=== PATIENT | male | born 1970 | race Two or more races ===

== ENCOUNTER 2017-11-29 11:04 | Emergency (ER) | payer SELFPAY ==
[2017-11-29] MEDS ORDERED: CHLORDIAZEPOXIDE 25MG PREPK#6 BTL TAKEHOME ONE (11:42)
[2017-11-29] MEDS ORDERED: chlordiazePOXIDE 25 MG CAP PO ONE (11:42)
--- NOTE | 2017-11-29 11:42 | EDPHY ---
General Time Seen by Provider: 11/29/17 11:21 Narrative: CHIEF COMPLAINT: The alcohol detox, wants to go to the [facility] HISTORY OF PRESENT ILLNESS: Patient presents with this friend at bedside with reports of alcohol abuse and is requesting [facility]. He says that he typically ingest nearly 30 beers per day. He says he had 4 beers this morning. He is wanting to detox with supervision, thus he would like to go to the [facility]. He has had a history of seizure from alcohol withdrawal remotely. He has presented to the [facility] in the past and was told to come here 1st, thus he has presented here 1st. He has no complaints of headache or chest pain. His friend at bedside says he has not witnessed any seizure activity. He is requesting Librium taper protocol. No other associated complaints or modifying factors. REVIEW OF SYSTEMS: Ten systems reviewed and are negative unless otherwise noted in the HPI PCP: None currently SPECIALISTS: None PAST MEDICAL HISTORY: Alcohol abuse PAST SURGICAL HISTORY: No recent surgeries SOCIAL HISTORY: Nonsmoker. Daily alcohol use of 30 beers per day. Denies drug use. Works here locally as a maintenance machinist FAMILY HISTORY: Noncontributory EXAMINATION General Appearance: Alert, no distress. Well-developed and well-nourished. Head: normocephalic, atraumatic Eyes: Pupils equal and round, no conjunctival pallor or injection ENT, Mouth: Mucous membranes moist. Airway patent Neck: Normal inspection, supple, non-tender Respiratory: Lungs are clear to auscultation Cardiovascular: Regular rate and rhythm Gastrointestinal: Abdomen is soft and nontender. No distention. No tympany Back: non-tender, no bony abnormalities Neurological: GCS 15. A&O, nonfocal, normal gait. No tremor. Normal mentation. Skin: Warm and dry, no rash no petechiae or purpura Extremities: Nontender, no pedal edema Psychiatric: Mood and affect normal DIFFERENTIAL DIAGNOSES: Including but not limited to acute alcohol intoxication, alcohol abuse, alcohol dependency, call withdrawal MDM: 11:35 a.m. Acute alcohol intoxication with abuse and asking for detox. No evidence of delirium tremens or encephalopathy. He is in no acute distress. His neuro exam is normal with no signs of seizure or tremor. I do feel he is a good candidate for supervised detoxification. He will be provided a prepack of Librium per protocol. His friend at bedside will take him there directly. We discussed that he cannot combine alcohol with a Librium. We discussed ED precautions, and I do feel he is stable for discharge home at this time. SUPERVISION: This patient was independently evaluated without direct involvement of or examination by the attending physician. - History Smoking Status: Never smoked - Objective Vital Signs: Initial Vital Signs Temperature (C) 98.8 F 11/29/17 11:09 Heart Rate 88 11/29/17 11:09 Respiratory Rate 16 11/29/17 11:09 Blood Pressure 152/96 H 11/29/17 11:09 O2 Sat (%) 96 11/29/17 11:09 O2 Delivery Mode Room Air Allergies/Adverse Reactions: No Known Allergies Allergy (Unverified 11/29/17 11:09) Home Medications: Medication Instructions Recorded NK [No Known Home Meds] 11/29/17 Medications Given: Discontinued Medications Chlordiazepoxide (Librium 25 Mg Prepack#6) 1 btl TAKEHOME EDNOW ONE Stop: 11/29/17 11:43 Last Admin: 11/29/17 12:06 Dose: 1 btl Chlordiazepoxide HCl (Librium) 50 mg PO EDNOW ONE Stop: 11/29/17 11:43 Last Admin: 11/29/17 12:06 Dose: 50 mg Departure - Departure Disposition: Home, Routine, Self-Care Clinical Impression: Alcohol intoxication Qualifiers: Complication of substance-induced condition: uncomplicated Qualified Code(s): F10.920 - Alcohol use, unspecified with intoxication, uncomplicated Condition: Good Instructions: Chlordiazepoxide (By mouth), Alcohol Intoxication (ED), Abuse of Alcohol (ED) Additional Instructions: 1. Proceed directly to the [facility] for detox 2. Do not combine Librium and alcohol at any time 3. Contact [facility] to establish as a new patient Referrals: [facility] [Outside] - As per Instructions [facility],. [Clinic] - As per Instructions
[2017-11-29 12:11] VITALS: BP 144/79
== END 2017-11-29 12:11 | disposition home or self-care (01) ==
DX: F10.920 Alcohol use, unspecified with intoxication, uncomplicated (principal)

== ENCOUNTER 2017-11-29 22:32 | Emergency (ER) | payer SELFPAY ==
[2017-11-29] MEDS ORDERED: LORazepam 2 MG/ML INJ IVP ONE (22:35)
[2017-11-29] MEDS ORDERED: chlordiazePOXIDE 25 MG CAP PO ONE (22:35)
--- NOTE | 2017-11-29 22:38 | EDPHY ---
H & P Source: Patient, RN/MD Exam Limitations: No limitations - Medical/Surgical History Hx Asthma: No Hx Chronic Respiratory Disease: No Hx Diabetes: No Hx Cardiac Disease: No Hx Renal Disease: No Hx Cirrhosis: No Hx Alcoholism: Yes Hx HIV/AIDS: No Hx Splenectomy or Spleen Trauma: No Other PMH: Alcoholism, testicular cancer, withdrawl sz - Social History Smoking Status: Never smoked Time Seen by Provider: 11/29/17 22:37 HPI/ROS: HPI: This is a 47-year-old male who presents with Chief Complaint: Alcohol withdrawal symptoms Location: body Quality: Alcohol withdrawal Duration: Today Signs and Symptoms: no fever, + nausea, no vomiting, no hematemesis, no blood in stool, no abdominal bloating, no diarrhea, no back pain, no urinary symptoms , no testicular/groin pain, no indigestion, no chest pain, no shortness of breath Timing: Acute on chronic Severity: Moderate to severe Context: Patient presents from the [facility] with complaints of alcohol withdrawal. He reports that his last drink was around 0100. Breathalyzer was negative at 1700. He reports that he received 2 doses of Librium at the [facility] since discharge from the emergency room this morning. He reports that he has been admitted to the ICU in the past for alcohol withdrawal seizures. He complains of tremors, tactile disturbances, nausea, dry heaving, disorientation. Denies any suicidal ideation/homicidal ideation/hallucinations. States that he normally drinks 30- 36 beers every evening. Modifying Factors: Librium with mild relief Comment: ROS: see HPI Constitutional: No fever, no chills, no weight loss Eyes: No blurred vision Respiratory: No shortness of breath, no cough Cardiovascular: No chest pain, no palpitations Gastrointestinal: No nausea, no vomiting, no diarrhea, no hematemesis, no blood in stool Genitourinary: No dysuria, no blood in urine Extremities: No myalgias, no edema Neurologic: No weakness, no numbness Skin: No rashes, no petechiae Hematologic: No bruising, no bleeding MEDICAL/SURGICAL/SOCIAL HISTORY: Medical history: Alcoholism, testicular cancer, withdrawal seizures Surgical history: Denies Social history: Originally from [facility]. Family history noncontributory. CONSTITUTIONAL: Calm and pleasant male, awake and alert, no obvious distress HEENT: Atraumatic and normocephalic, PERRL, EOMI. Nares patent; no rhinorrhea; no nasal mucosal edema. Tympanic membranes clear. Oropharynx clear, no exudate and moist pink mucosa. Airway patent. No lymphadenopathy. No meningismus. Cardiovascular: Normal S1/S2, regular rate, regular rhythm, without murmur rub or gallop. PULMONARY/CHEST: Symmetrical and nontender. Clear to auscultation bilaterally. Good air movement. No accessory muscle usage. ABDOMEN: Soft, nondistended, nontender, no rebound, no guarding, no peritoneal signs, no masses or organomegaly. No CVAT. EXTREMITIES: 2/2 pulses, strength 5/5, no deformities, no clubbing, no cyanosis or edema. NEUROLOGICAL: no focal neuro deficits. GCS 15. SKIN: Warm and dry, no erythema. no rash. Good capillary refill. (Dayna Caballero) Constitutional: Initial Vital Signs Temperature (C) 36.7 C 11/29/17 22:40 Heart Rate 95 11/29/17 22:40 Respiratory Rate 18 11/29/17 22:40 Blood Pressure 126/113 H 11/29/17 22:40 O2 Sat (%) 98 11/29/17 22:40 O2 Delivery Mode Room Air Allergies/Adverse Reactions: No Known Allergies Allergy (Unverified 11/29/17 22:39) Home Medications: Medication Instructions Recorded NK [No Known Home Meds] 11/29/17 Medical Decision Making ED Course/Re-evaluation: Upon arrival CIWA was 19. Given Librium 75 mg, IV Ativan 2 mg, 2 L normal saline. Reassessed patient 1 hr later; CIWA down to 6. Watching TV and calm. No signs of delirium/seizure activity Does not meet M1 hold/ Detainer criteria. 0015: End of shift. Signed over to Dr. Santoro. Recommend 2 L normal saline IV hydration and continued monitoring overnight due to high risk of delirium tremens. In the a.m., discharge back to the [facility]. This patient was seen under the supervision of my secondary supervising physician. I evaluated care for this patient independently. Discussed this patient with Dr. Santoro who did not see the patient. (Dayna Caballero) Differential Diagnosis: Differential diagnosis includes but is not limited to alcohol withdrawal, alcohol withdrawal with delirium, alcohol withdrawal seizures. (Dayan Caballero) Other Provider: 0575 care assumed by me from JATIN Caballero pending further management of the patient' s alcohol withdrawal. 0500 patient is improved. He is no longer tremulous. He is resting comfortably. Will discharge to the [facility] with Librium. (Tima Santoro) - Data Points Medications Given: Lorazepam (Ativan Injection) 0 mg IVP Q1H PRN; Protocol PRN Reason: Alcohol Withdrawal w/IV access Stop: 11/30/17 11:02 Last Admin: 11/30/17 01:00 Dose: 2 mg Discontinued Medications Chlordiazepoxide HCl (Librium) 75 mg PO EDNOW ONE Stop: 11/29/17 22:36 Last Admin: 11/29/17 22:43 Dose: 75 mg Sodium Chloride (Ns) 1,000 mls @ 0 mls/hr IV EDNOW ONE; Wide Open PRN Reason: Protocol Stop: 11/29/17 23:02 Last Admin: 11/29/17 23:07 Dose: 1,000 mls Sodium Chloride (Ns) 1,000 mls @ 0 mls/hr IV EDNOW ONE; Wide Open PRN Reason: Protocol Stop: 11/29/17 23:02 Last Admin: 11/29/17 23:07 Dose: 1,000 mls Lorazepam (Ativan Injection) 2 mg IVP EDNOW ONE Stop: 11/29/17 22:36 Last Admin: 11/29/17 22:43 Dose: 2 mg Departure - Departure Clinical Impression: Alcohol abuse Alcohol withdrawal Qualifiers: Complication of substance-induced condition: uncomplicated Qualified Code(s): F10.230 - Alcohol dependence with withdrawal, uncomplicated Condition: Good Instructions: Abuse of Alcohol (ED), Alcohol Withdrawal (ED) Referrals: [facility] [Outside] - As per Instructions [facility],. [Clinic] - As per Instructions
[2017-11-29] MEDS ORDERED: LORazepam 2 MG/ML INJ IVP PRN (23:01)
[2017-11-29] MEDS ORDERED: NS 1,000 ML IV ONE ×2 (23:01)
[2017-11-29] MEDS ORDERED: LORazepam 1 MG TAB PO PRN (23:01)
[2017-11-30] MEDS ORDERED: CHLORDIAZEPOXIDE 25MG PREPK#6 BTL TAKEHOME ONE (04:35)
[2017-11-30] MEDS ORDERED: chlordiazePOXIDE 25 MG CAP ONE (04:50)
[2017-11-30] MEDS ORDERED: chlordiazePOXIDE 25 MG CAP PO ONE (04:53)
[2017-11-30 05:03] VITALS: BP 110/56
== END 2017-11-30 05:15 | disposition home or self-care (01) ==
LOC: EDUNIT#
DX: F10.230 Alcohol dependence with withdrawal, uncomplicated (principal); E86.9 Volume depletion, unspecified; Z85.47 Personal history of malignant neoplasm of testis
CPT/HCPCS: 96374; J2060

== ENCOUNTER 2018-01-24 14:16 | Emergency (ER) | payer SELFPAY ==
[2018-01-24] MEDS ORDERED: LORazepam 1 MG TAB PO PRN (14:34)
--- NOTE | 2018-01-24 14:44 | EDPHY ---
General - History Smoking Status: Never smoked Time Seen by Provider: 01/24/18 14:34 Narrative: CHIEF COMPLAINT: Alcohol withdrawal, suicidal HISTORY OF PRESENT ILLNESS: Patient presents with complaints of alcohol withdrawal and suicidal ideation. He admits to drinking 20/30 beers per day, but stopped this morning. He feels shaky. He has also felt suicidal since yesterday. He had a plan of driving himself off a macie into a [place]. He expresses intent to do so. He says he wants to quit drinking but he cannot do so. He has no headache or chest pain. He does not endorse any use of illicit substances. Denies previous suicide attempt does have history of suicidal ideation. No other associated complaints or modifying factors. REVIEW OF SYSTEMS: Ten systems reviewed and are negative unless otherwise noted in the HPI PCP: None SPECIALISTS: None PAST MEDICAL HISTORY: Alcohol abuse, testicular cancer PAST SURGICAL HISTORY: No recent surgeries SOCIAL HISTORY: Admits to tobacco and heavy alcohol use with 20-30 beers per day. Last intake of alcohol was this morning followed by 1 beer just prior to arrival FAMILY HISTORY: Noncontributory EXAMINATION General Appearance: Alert, no distress. Well-developed well-nourished. Anxious Head: normocephalic, atraumatic Eyes: Pupils equal and round, no conjunctival pallor or injection ENT, Mouth: Mucous membranes moist Neck: Normal inspection, supple, non-tender Respiratory: Lungs are clear to auscultation Cardiovascular: Regular rate and rhythm. No murmur Gastrointestinal: Abdomen is soft and nontender Back: non-tender, no bony abnormalities Neurological: GCS 15. A&O, nonfocal, normal gait. Mild tremor. Normal finger- to-nose. No pronator drift. Skin: Warm and dry, no rash Extremities: Nontender, no pedal edema Psychiatric: Depressed mood and flat affect with suicidal ideation. Plan of killing himself by driving off into a [place]. Alcohol use and abuse. Denies substance abuse otherwise DIFFERENTIAL DIAGNOSES: Including but not limited to suicidal ideation, alcohol withdrawal, delirium tremens, alcohol intoxication, alcohol abuse MDM: 2:35 p.m. Alcohol use with reported drug tissue to suicidal ideation with plan of driving off a macie into a [place]. He does exhibit intent to harm self. I do not appreciate any evidence of DTs, but he does have mild withdrawal symptoms. Vital signs are stable. I have ordered the ED alcohol withdrawal protocol as well as placing him on an M1 hold, signed by Dr. Saucedo. We will watch him closely and administer Ativan as needed per protocol. Proceed with medical clearance and evaluation. The patient is aware that he is on a hold. 4:00 p.m. Patient's ETOH level is higher than will be evaluated. He will need to remain here. We will monitor him closely continue on our ED alcohol withdrawal protocol. 5:40 p.m. Patient is awaiting evaluation. At this time Dr. Saucedo will assume care the patient. Please see her note for final disposition. SUPERVISION: Patient was independently examined, but I discussed the case with my primary supervising physician Dr. Saucedo. (Maurice Mckeon) Discussion: 9pm: signed over to Dr. Flowers at shift change. Dispo pending. (Dorothea Saucedo) - Objective Vital Signs: Initial Vital Signs Temperature (C) 36.4 C 01/24/18 14:19 Heart Rate 91 01/24/18 14:19 Respiratory Rate 18 01/24/18 14:19 Blood Pressure 144/92 H 01/24/18 14:19 O2 Sat (%) 95 01/24/18 14:19 O2 Delivery Mode Nasal Cannula O2 (L/minute) 2 Allergies/Adverse Reactions: No Known Allergies Allergy (Verified 01/24/18 14:18) Home Medications: Medication Instructions Recorded NK [No Known Home Meds] 11/29/17 Laboratory Results: Laboratory Results 01/24/18 15:00 01/24/18 15:00 01/24/18 01/24/18 01/24/18 15:00 15:00 15:00 WBC 8.28 10^3/uL 10^3/uL (3.80-9.50) RBC 5.42 10^6/uL 10^6/uL (4.40-6.38) Hgb 16.7 g/dL g/dL (13.7-17.5) Hct 45.4 % % (40.0-51.0) MCV 83.8 fL fL (81.5-99.8) MCH 30.8 pg pg (27.9-34.1) MCHC 36.8 g/dL H g/dL (32.4-36.7) RDW 11.9 % % (11.5-15.2) Plt Count 243 10^3/uL 10^3/uL (150-400) MPV 8.6 fL L fL (8.7-11.7) Neut % (Auto) 64.9 % % (39.3-74.2) Lymph % (Auto) 26.4 % % (15.0-45.0) [place] % (Auto) 7.2 % % (4.5-13.0) Eos % (Auto) 0.7 % % (0.6-7.6) Baso % (Auto) 0.6 % % (0.3-1.7) Nucleat RBC Rel Count 0.0 % % (0.0-0.2) Absolute Neuts (auto) 5.36 10^3/uL 10^3/uL (1.70-6.50) Absolute Lymphs (auto) 2.19 10^3/uL 10^3/uL (1.00-3.00) Absolute Monos (auto) 0.60 10^3/uL 10^3/uL (0.30-0.80) Absolute Eos (auto) 0.06 10^3/uL 10^3/uL (0.03-0.40) Absolute Basos (auto) 0.05 10^3/uL 10^3/uL (0.02-0.10) Absolute Nucleated RBC 0.00 10^3/uL 10^3/uL (0-0.01) Immature Gran % 0.2 % % (0.0-1.1) Immature Gran # 0.02 10^3/uL 10^3/uL (0.00-0.10) Sodium 133 mEq/L L mEq/L (135-145) Potassium 4.1 mEq/L mEq/L (3.3-5.0) Chloride 93 mEq/L L mEq/L (97-110) Carbon Dioxide 19 mEq/l L mEq/l (22-31) Anion Gap 21 mEq/L H mEq/L (8-16) BUN 2 mg/dL L mg/dL (7-23) Creatinine 0.6 mg/dL L mg/dL (0.7-1.3) Estimated GFR > 60 Glucose 106 mg/dL H mg/dL (70-100) Calcium 9.0 mg/dL mg/dL (8.5-10.4) Urine Opiates Screen NEGATIVE (NEGATIVE) Urine Barbiturates NEGATIVE (NEGATIVE) Ur Phencyclidine Scrn NEGATIVE (NEGATIVE) Ur Amphetamine Screen NEGATIVE (NEGATIVE) U Benzodiazepines Scrn NEGATIVE (NEGATIVE) Urine Cocaine Screen NEGATIVE (NEGATIVE) U Marijuana (THC) Screen NEGATIVE (NEGATIVE) Ethyl Alcohol 311 mg/dL H mg/dL (0-10) Medications Given: Lorazepam (Ativan Injection) 0 mg IVP Q1H PRN; Protocol PRN Reason: Alcohol Withdrawal w/IV access Stop: 01/25/18 02:34 Last Admin: 01/24/18 15:31 Dose: 2 mg Discontinued Medications Sodium Chloride (Ns) 1,000 mls @ 0 mls/hr IV ONCE ONE; Wide Open PRN Reason: Protocol Stop: 01/24/18 15:31 Last Admin: 01/24/18 15:31 Dose: 1,000 mls Sodium Chloride (Ns) 1,000 mls @ 0 mls/hr IV EDNOW ONE; Wide Open PRN Reason: Protocol Stop: 01/24/18 16:27 Last Admin: 01/24/18 16:50 Dose: 1,000 mls Departure - Departure Referrals: NONE *PRIMARY CARE P,. [Primary Care Provider] - As per Instructions
[2018-01-24] MEDS ORDERED: NS 1,000 ML IV ONE ×2 (15:30→16:26)
[2018-01-24] MEDS: LORazepam 2 MG/ML INJ IVP PRN (15:31)
[2018-01-24 16:04] LABS: PLATELET COUNT 243 10^3/uL (150-400)
[2018-01-24] MEDS ORDERED: chlordiazePOXIDE 25 MG CAP ONE (21:10)
[2018-01-24] MEDS ORDERED: chlordiazePOXIDE 25 MG CAP PO ONE (21:11)
[2018-01-25] MEDS ORDERED: LORazepam 1 MG TAB ONE (05:18)
[2018-01-25] MEDS ORDERED: LORazepam 1 MG TAB PO ONE ×2 (05:22→16:08)
[2018-01-25] MEDS ORDERED: LORazepam 2 MG/ML INJ ONE (09:49)
[2018-01-25] MEDS: LORazepam 2 MG/ML INJ IVP PRN (09:53)
--- NOTE | 2018-01-25 16:32 | ASMTTCLDSP ---
TLC Discharge Disposition Disposition: Answers: Transfer Disposition Notes: Notes: Pt was accepted at [facility] unit under the care of Dr Marlen Martinez. Type of Hold: Answers: /72-hour Hold Hold initiated by: Answers: ED Physician For Transfers, Accepting Facility: [facility] For Transfers, Accepting Psychiatrist: Dr. Marlen Martinez For Transfers, Reason Pt needs inpt dual dx program Patient is Being Transferred: Date Signed: 01/25/2018 04:31 PM Electronically Signed By:Nia Cardoza
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
[2018-01-25] MEDS ORDERED: chlordiazePOXIDE 25 MG CAP ONE (17:57)
[2018-01-25] MEDS ORDERED: chlordiazePOXIDE 25 MG CAP PO ONE (17:58)
[2018-01-25 19:09] VITALS: BP 127/69
== END 2018-01-25 19:18 ==
DX: R45.851 Suicidal ideations (principal); F10.129 Alcohol abuse with intoxication, unspecified; E86.9 Volume depletion, unspecified; Z85.47 Personal history of malignant neoplasm of testis
CPT/HCPCS: 80305; 96374; G0480; J2060

== ENCOUNTER 2018-05-23 04:19 | Inpatient (IN) | payer SELFPAY ==
[2018-05-23] MEDS ORDERED: NS 1,000 ML IV ONE ×2 (04:35→04:43)
--- NOTE | 2018-05-23 04:37 | EDPHY ---
H & P Time Seen by Provider: 05/23/18 04:37 HPI/ROS: HPI CHIEF COMPLAINT: Nausea and vomiting, hematemesis, dark tarry school HISTORY OF PRESENT ILLNESS: 48-year-old male, states he is otherwise healthy without any significant medical history, presents emergency room with abdominal pain nausea and vomiting. Patient states for the past 48 hr he has had ongoing vomiting. Unable to tolerate p.o.. He typically drinks 30 beers per day. He has been doing so for years. He is unable to tolerate p.o. This evening. He also complains of some abdominal pain. He states every time he ingested something he vomits Past Medical History: Denies medical history Past Surgical History: Denies surgical history Social History: Daily alcohol use. Up to 30 beers. No illicit drugs or tobacco. Family History: Noncontributory ROS REVIEW OF SYSTEMS: 10 Systems were reviewed and negative with the exception of the elements mentioned in the history of present illness. Exam Constitutional nontoxic however slightly tremulous. triage nursing summary reviewed, vital signs reviewed, awake/alert. Eyes normal conjunctivae and sclera, EOMI, PERRLA. Not icteric. HENT normal inspection, atraumatic, moist mucus membranes, no epistaxis, neck supple/ no meningismus, no raccoon eyes. Respiratory clear to auscultation bilaterally, normal breath sounds, no respiratory distress, no wheezing. Cardiovascular rate normal, regular rhythm, no murmur, no edema, distal pulses normal. Gastrointestinal nontender palpation right upper quadrant, no rebound, no guarding, normal bowel sounds, no distension, no pulsatile mass. Genitourinary no CVA tenderness. Musculoskeletal no midline vertebral tenderness, full range of motion, no calf swelling, no tenderness of extremities, no meningismus, good pulses, neurovascularly intact. Skin no jaundice pink, warm, & dry, no rash, skin atraumatic. Neurologic awake, alert and oriented x 3, AAOx3, moves all 4 extremities equally, motor intact, sensory intact, CN II-XII intact, normal cerebellar, normal vision, normal speech. Psychiatric normal mood/affect. Heme/Lymph/Immune no lymphadenopathy. Differential diagnosis includes but is not limited to and in no particular order : Bowel obstruction, appendicitis, gallbladder disease, diverticulitis, colitis , enteritis, perforated viscus, gastritis, GERD, esophagitis, urinary tract infection, pyelonephritis, kidney stones Medical Decision Making: Plan for this patient IV establishment IV fluid bolus , Zofran for nausea, Ativan for tremors and anxiety and possible alcohol draw, check basic blood work, LFTs, lipase, CT scan abdomen pelvis with IV contrast. Type and screen. Protonix bolus, and re-evaluate. Re-evaluation: Lactic acid noted be 4.1. The patient is not septic. Will not follow the septic protocol or septic shock protocol. Lactic acid is elevated due to dehydration and underlying liver disease. CT scan abdomen pelvis with IV contrast: Enlarged liver. Otherwise no acute inflammatory process. 0618: Patient re-evaluated resting comfortably. Vital signs are stable. Patient's CT scan shows enlarged liver but otherwise unremarkable Patient's blood work reviewed. Patient to be admitted to the hospitalist service for potential GI bleeding given hematemesis and dark tarry stool. Additionally the setting of alcoholism with alcohol withdrawal. Spoke with the hospitalist service Dr. Benjamin agrees to admit. Source: Patient - Medical/Surgical History Hx Asthma: No Hx Chronic Respiratory Disease: No Hx Diabetes: No Hx Cardiac Disease: No Hx Renal Disease: No Hx Cirrhosis: No Hx Alcoholism: Yes Hx HIV/AIDS: No Hx Splenectomy or Spleen Trauma: No Other PMH: Alcoholism, testicular cancer, withdrawl sz - Social History Smoking Status: Never smoked Constitutional: Initial Vital Signs Temperature (C) 37.2 C 05/23/18 04:25 Heart Rate 114 H 05/23/18 04:25 Respiratory Rate 16 05/23/18 04:25 Blood Pressure 140/86 H 05/23/18 04:25 O2 Sat (%) 97 05/23/18 04:25 O2 Delivery Mode Room Air Allergies/Adverse Reactions: No Known Allergies Allergy (Verified 05/23/18 04:44) Home Medications: Medication Instructions Recorded NK [No Known Home Meds] 11/29/17 Medical Decision Making - Data Points Laboratory Results: Laboratory Results 05/23/18 04:45 05/23/18 04:45 Medications Given: Folic Acid (Folic Acid) 1 mg PO DAILY ALESSIA Stop: 11/19/18 08:59 Last Admin: 05/23/18 07:57 Dose: 1 mg Sodium Chloride (Ns) 1,000 mls @ 125 mls/hr IV CONT ALESSIA Stop: 11/19/18 06:14 Last Admin: 05/23/18 15:29 Dose: 1,000 mls Lorazepam (Ativan Injection) 0 mg IVP Q1H PRN; Protocol PRN Reason: Alcohol Withdrawal w/IV access Stop: 11/19/18 06:17 Last Admin: 05/24/18 03:15 Dose: 2 mg Multivitamins (Tab-A-Víctor) 1 each PO DAILY ALESSIA Stop: 11/19/18 08:59 Last Admin: 05/23/18 07:57 Dose: 1 each Ondansetron HCl (Zofran) 4 mg IVP Q4HRS PRN PRN Reason: Nausea/Vomiting, Can't Take PO Stop: 11/19/18 06:12 Last Admin: 05/23/18 07:56 Dose: 4 mg Pantoprazole Sodium (Protonix) 40 mg IVP BID ALESSIA Stop: 11/19/18 08:59 Last Admin: 05/23/18 20:08 Dose: 40 mg Discontinued Medications Al Hydroxide/Mg Hydroxide (Maalox Susp) 30 ml PO EDNOW ONE Stop: 05/23/18 06:19 Last Admin: 05/23/18 06:24 Dose: 30 ml Hyoscyamine Sulfate (Levsin, Hyomax-Sl) 0.125 mg PO EDNOW ONE Stop: 05/23/18 06:19 Last Admin: 05/23/18 06:23 Dose: 0.125 mg Sodium Chloride (Ns) 1,000 mls @ 0 mls/hr IV EDNOW ONE; Wide Open PRN Reason: Protocol Stop: 05/23/18 04:36 Last Admin: 05/23/18 04:49 Dose: 1,000 mls Sodium Chloride (Ns) 1,000 mls @ 0 mls/hr IV ONCE ONE PRN Reason: Wide Open Stop: 05/23/18 04:44 Last Admin: 05/23/18 04:50 Dose: 1,000 mls Lidocaine (Lidocaine 2% Viscous) 5 ml PO EDNOW ONE Stop: 05/23/18 06:19 Last Admin: 05/23/18 08:42 Dose: Not Given Lidocaine (Lidocaine 2% Viscous) 15 ml PO ONCE ONE Stop: 05/23/18 06:29 Last Admin: 05/23/18 06:31 Dose: 15 ml Lorazepam (Ativan Injection) 1 mg IVP EDNOW ONE Stop: 05/23/18 04:43 Last Admin: 05/23/18 04:51 Dose: 1 mg Lorazepam (Ativan) 0 mg PO Q4H PRN; Protocol PRN Reason: Alcohol Withdrawal w/IV access Stop: 05/23/18 18:19 Last Admin: 05/23/18 07:57 Dose: 1 mg Pantoprazole Sodium (Protonix) 40 mg IVP EDNOW ONE Stop: 05/23/18 04:43 Last Admin: 05/23/18 04:53 Dose: 40 mg Departure - Departure Disposition: [facility] Inpatient Acute Clinical Impression: Abdominal pain Qualifiers: Abdominal location: upper abdomen, unspecified Qualified Code(s): R10.10 - Upper abdominal pain, unspecified GIB (gastrointestinal bleeding) Qualifiers: GI bleed type/associated pathology: unspecified gastrointestinal hemorrhage type Qualified Code(s): K92.2 - Gastrointestinal hemorrhage, unspecified Alcohol withdrawal Qualifiers: Complication of substance-induced condition: uncomplicated Qualified Code(s): F10.230 - Alcohol dependence with withdrawal, uncomplicated Condition: Fair
[2018-05-23] MEDS ORDERED: PANTOPRAZOLE SODIUM 40 MG VIAL IVP ONE (04:42)
[2018-05-23] MEDS ORDERED: LORazepam 2 MG/ML INJ IVP ONE (04:42)
[2018-05-23] MEDS ORDERED: IOPAMIDOL (ISOVUE-300) 100 ML BTL ONE (05:00)
[2018-05-23 05:07] LABS: INR 1.03 (0.83-1.16); PROTIME(PATIENT) 13.7 SEC (12.0-15.0)
[2018-05-23 05:17] LABS: PLATELET COUNT 170 10^3/uL (150-400)
[2018-05-23] MEDS ORDERED: ONDANSETRON DISINTEGRATING 4 MG TAB PO PRN (06:13)
[2018-05-23] MEDS ORDERED: ONDANSETRON 4 MG/2 ML VIAL IVP PRN (06:13)
[2018-05-23] MEDS ORDERED: LIDOCAINE 2% VISCOUS 15 ML UDCUP ONE (06:16)
[2018-05-23] MEDS ORDERED: HYOSCYAMINE SULFATE 0.125 MG TAB ONE (06:16)
[2018-05-23] MEDS ORDERED: MAG HYDROX/AL HYDROX/SIMETH 30 ML UDCUP ONE (06:16)
[2018-05-23] MEDS ORDERED: MAG HYDROX/AL HYDROX/SIMETH 30 ML UDCUP PO ONE (06:18)
[2018-05-23] MEDS ORDERED: LIDOCAINE 2% VISCOUS 15 ML UDCUP PO ONE ×2 (06:18→06:28)
[2018-05-23] MEDS ORDERED: FLUMAZENIL 0.5 MG/5 ML MDV IVP PRN (06:18)
[2018-05-23] MEDS ORDERED: LORazepam 1 MG TAB PO PRN ×2 (06:19→14:53)
[2018-05-23] MEDS ORDERED: LORazepam 2 MG/ML INJ IVP PRN (06:19)
[2018-05-23] MEDS: HYOSCYAMINE SULFATE 0.125 MG TAB PO ONE (06:23)
--- NOTE | 2018-05-23 06:57 | PDGENHP ---
History and Physical - Chief Complaint Bleeding - History of Present Illness 48 yo M w/ hx of ETOH use d/o presents with blood in vomit and stool. The patient has not been able to tolerate PO intake for 4 days. During that period he has been vomiting blood and his stool has been bloody. Initially both vomit and stool were melanotic but now both have become ju red blood. He feels lightheaded and dizzy. He drinks 30 Fuentes beers daily. He has been doing this essentially since age 17. He has had prior episodes of severe withdrawal including seizures. He feels like he is in mild withdrawal currently. His last significant drinking was 2 days ago but he tried a few sips of a beer this morning. He denies other medical problems and does not take any medications regularly. Case discussed with ED physician Dr. Vasquez; records reviewed in EMR. History Information - Allergies/Home Medication List Allergies/Adverse Reactions: No Known Allergies Allergy (Verified 05/23/18 04:44) Home Medications: NK [No Known Home Meds] 11/29/17 [Last Taken Unknown] I have personally reviewed and updated: family history, medical history - Past Medical History no pertinent PMH - Surgical History Reports: no pertinent surgical hx - Family History Positive for: diabetes type II, CAD - Social History Smoking Status: Never smoked Alcohol Use: Heavy (30 beers daily) Review of Systems Review of Systems: ROS: 10pt was reviewed & negative except for what was stated in HPI & below Physical Exam Physical Exam: Temp Pulse Resp BP Pulse Ox 37.2 C 112 H 18 118/77 96 05/23/18 04:25 05/23/18 04:58 05/23/18 04:58 05/23/18 04:58 05/23/18 04:58 Constitutional: appears nourished, uncomfortable Eyes: PERRL, EOMI Ears, Nose, Mouth, Throat: moist mucous membranes, other (Erythematous pharynx) Cardiovascular: no murmur, rub, or gallop, tachycardia Respiratory: no respiratory distress, clear to auscultation Gastrointestinal: normoactive bowel sounds, tenderness (Diffuse) Skin: warm, normal color Musculoskeletal: full muscle strength, no muscle tenderness Neurologic: AAOx3, CN II-XII Intact Psychiatric: interacting appropriately, not anxious Lab Data & Imaging Review 05/23/18 04:45 05/23/18 04:45 WBC 12.12 10^3/uL (3.80-9.50) H 05/23/18 04:45 RBC 4.67 10^6/uL (4.40-6.38) 05/23/18 04:45 Hgb 14.9 g/dL (13.7-17.5) 05/23/18 04:45 Hct 39.8 % (40.0-51.0) L 05/23/18 04:45 MCV 85.2 fL (81.5-99.8) 05/23/18 04:45 MCH 31.9 pg (27.9-34.1) 05/23/18 04:45 MCHC 37.4 g/dL (32.4-36.7) H 05/23/18 04:45 RDW 12.0 % (11.5-15.2) 05/23/18 04:45 Plt Count 170 10^3/uL (150-400) 05/23/18 04:45 MPV 9.0 fL (8.7-11.7) 05/23/18 04:45 Neut % (Auto) 84.1 % (39.3-74.2) H 05/23/18 04:45 Lymph % (Auto) 5.7 % (15.0-45.0) L 05/23/18 04:45 Shelby % (Auto) 9.4 % (4.5-13.0) 05/23/18 04:45 Eos % (Auto) 0.0 % (0.6-7.6) L 05/23/18 04:45 Baso % (Auto) 0.4 % (0.3-1.7) 05/23/18 04:45 Nucleat RBC Rel Count 0.0 % (0.0-0.2) 05/23/18 04:45 Absolute Neuts (auto) 10.19 10^3/uL (1.70-6.50) H 05/23/18 04:45 Absolute Lymphs (auto) 0.69 10^3/uL (1.00-3.00) L 05/23/18 04:45 Absolute Monos (auto) 1.14 10^3/uL (0.30-0.80) H 05/23/18 04:45 Absolute Eos (auto) 0.00 10^3/uL (0.03-0.40) L 05/23/18 04:45 Absolute Basos (auto) 0.05 10^3/uL (0.02-0.10) 05/23/18 04:45 Absolute Nucleated RBC 0.00 10^3/uL (0-0.01) 05/23/18 04:45 Immature Gran % 0.4 % (0.0-1.1) 05/23/18 04:45 Immature Gran # 0.05 10^3/uL (0.00-0.10) 05/23/18 04:45 PT 13.7 SEC (12.0-15.0) 05/23/18 04:45 INR 1.03 (0.83-1.16) 05/23/18 04:45 APTT 25.9 SEC (23.0-38.0) 05/23/18 04:45 VBG Lactic Acid 2.6 mmol/L (0.7-2.1) H 05/23/18 05:59 Sodium 128 mEq/L (135-145) L 05/23/18 04:45 Potassium 3.5 mEq/L (3.3-5.0) 05/23/18 04:45 Chloride 83 mEq/L (97-110) L 05/23/18 04:45 Carbon Dioxide 24 mEq/l (22-31) 05/23/18 04:45 Anion Gap 21 mEq/L (6-14) H 05/23/18 04:45 BUN 17 mg/dL (7-23) 05/23/18 04:45 Creatinine 0.6 mg/dL (0.7-1.3) L 05/23/18 04:45 Estimated GFR > 60 05/23/18 04:45 Glucose 125 mg/dL (70-100) H 05/23/18 04:45 Calcium 9.4 mg/dL (8.5-10.4) 05/23/18 04:45 Total Bilirubin 1.3 mg/dL (0.1-1.4) 05/23/18 04:45 Conjugated Bilirubin 0.1 mg/dL (0.0-0.5) 05/23/18 04:45 Unconjugated Bilirubin 1.2 mg/dL (0.0-1.1) H 05/23/18 04:45 AST 102 IU/L (17-59) H 05/23/18 04:45 ALT 163 IU/L (21-72) H 05/23/18 04:45 Alkaline Phosphatase 67 IU/L (38-126) 05/23/18 04:45 Total Protein 7.0 g/dL (6.3-8.2) 05/23/18 04:45 Albumin 4.0 g/dL (3.5-5.0) 05/23/18 04:45 Lipase 67 IU/L (23-300) 05/23/18 04:45 Ethyl Alcohol 11 mg/dL (0-10) H 05/23/18 04:45 Patient ABO/Rh O POSITIVE 05/23/18 04:45 Antibody Screen NEGATIVE 05/23/18 04:45 Imaging Review: CT A/P Prelim: prelim CT AP Nothing acute. No SBO, FA, or FF Large fatty liver No evidence of pancreatitis d/w Dr. Vasquez at 5:40 am niki green Assessment & Plan Assessment: 48 yo M w/ ETOH use d/o presents with GIB and withdrawal. Plan: 1. GIB - Most likely upper GI source noting predominance of melena. However, he has had some bright red blood both in vomit and stool as well. He is mildly tachycardic currently but otherwise hemodynamically stable. H/H within normal limits on admission despite 4 days of symptoms. Lactate 4.1 -> 2.6 s/p IVF. - Maintain NPO - Monitor CBC closely, next at 1000 - Aggressive mIVF - PPI IV BID - GI consult for likely EGD today 2. ETOH use d/o with acute withdrawal - Patient drinks 30 beers daily and has hx of prior, serious withdrawal. His last drink was 2 days ago. He is currently displaying signs of early withdrawal. - CIWA protocol - Daily MVI, folate, thiamine 3. Lactic acidosis - 4.1 -> 2.6 s/p IVF; etiology 2/2 #1. - Continue IVF 4. Transaminitis - Mild, related to heavy ETOH use. 5. Hyponatremia - Hypovolemic in the setting of very poor PO intake and ongoing vomiting. - Continue NS, prioritizing volume over water balance at this stage - Monitor BMP daily Diet - NPO Code - Full Ppx - SCDs Dispo - Admit under observation status
[2018-05-23] MEDS: MULTIVITAMINS 1 EACH TAB PO SCH (07:57)
[2018-05-23] MEDS: FOLIC ACID 1 MG TAB PO SCH (07:57)
[2018-05-23] MEDS: NS 1,000 ML IV SCH ×2 (08:45→15:29)
--- NOTE | 2018-05-23 09:55 | GCON ---
GI INPATIENT CONSULTATION DATE OF CONSULTATION: 05/23/2018 REASON FOR CONSULTATION: I was kindly requested to see this patient by Dr. Adrian Hitchcock in consultation for a chief complaint of gastrointestinal bleeding. HISTORY OF PRESENT ILLNESS: He is a 48-year-old male who is an alcoholic, drinking 30 beers a day. With this, he has had poor oral intake for the last 4 days. He began to vomit some blood, as well as having dark stool. He feels lightheaded and dizzy. He feels that he is in mild withdrawal from alcohol. His last significant drink was 2 days ago, though he did try a few sips of beer this morning. He denies taking any other medications regularly. He denies fever, weight loss. PAST MEDICAL HISTORY: Otherwise noncontributory. ALLERGIES: No known drug allergies. INPATIENT MEDICATIONS: Include thiamine, folate, multivitamin with iron, Protonix 40 mg IV twice a day, normal saline 200 mL an hour. SOCIAL HISTORY: As above. FAMILY HISTORY: Negative for similar hematemesis. REVIEW OF SYSTEMS: Positive pertinent review of systems as per my HPI. Otherwise, complete review of systems is negative. PHYSICAL EXAM: CONSTITUTIONAL: Well-nourished. VITAL SIGNS: Stable, including blood pressure. SKIN: Warm, dry. EYES: Pupils equal, round, and reactive to light and accommodation. EARS, NOSE, MOUTH, and THROAT: Oropharynx is without masses. Moist mucosa. CARDIOVASCULAR: Normal S2, normal PMI. RESPIRATORY: Lungs clear to auscultation and percussion anteriorly. GASTROINTESTINAL: Mild diffuse tenderness. Normal bowel sounds. NEUROLOGIC: Grossly nonfocal. Cranial nerves grossly intact. PSYCHIATRIC: Orientation, insight appropriate. MUSCULOSKELETAL: Strength grossly normal throughout, normal station. LABORATORIES: Include a hematocrit of 39.8%, normal platelet count. Normal coags. Sodium 128. Normal total bilirubin and albumin. Normal lipase. AST 102, with an ALT of 163. IMAGING STUDIES: CT scan of the abdomen and pelvis shows hepatomegaly and a fatty liver. ASSESSMENT: 1. Hematemesis. Suspect either alcoholic gastritis or a Fidelia-Armando tear. Do not suspect varices, as he overall has good synthetic function. At this point, no evidence of continued, active bleed. 2. Alcoholism. PLAN: 1. No upper endoscopy needed at this juncture. 2. Clear liquids. If his hematocrit remains relatively stable, suggestive that he no longer is having active bleeding, we will advance his diet. 3. DT prophylaxis. 4. Agree with Protonix IV q.12 hours for now. If his hematocrits remain stable , recommend eventually switching this to a generic oral proton pump inhibitor daily for 8 weeks. 5. Recommend no outpatient alcohol. 6. Serial hematocrits. 7. Will decrease his IV fluids to 125 mL an hour, as he has a normal blood pressure. For now, we will follow informally only. Please call if we can be of further help, including signs of clinically significant, active bleeding. Thank you for allowing me to help in the management of this patient. /[id number]/MODL MTDD
[2018-05-23] MEDS: PANTOPRAZOLE SODIUM 40 MG VIAL IVP SCH ×2 (10:41→20:08)
[2018-05-23 10:50] LABS: PLATELET COUNT 152 10^3/uL (150-400)
[2018-05-23] MEDS: LORazepam 2 MG/ML INJ IVP PRN ×5 (10:52→23:11)
--- NOTE | 2018-05-23 11:21 | HOSPPROG ---
Hospitalist Progress Note Assessment/Plan: 48 yo M w/ ETOH use d/o presents with GIB and withdrawal. Plan: 1. GIB - Most likely upper GI source noting predominance of melena. However, he has had some bright red blood both in vomit and stool as well. H. H/H within normal limits on admission despite 4 days of symptoms. Lactate 4.1 -> 2.6 s/p IVF. - GI consulted who suspect alcoholic gastritis or MWT, do not recommend EGD at this time, start clear liquids, PPI IV BID for now if H/H remains stable will switch to PO PPI for 8 weeks - Monitor CBC - Continue mIVF - PPI IV BID 2. ETOH use d/o with acute withdrawal - Patient drinks 30 beers daily and has hx of prior, serious withdrawal. His last drink was 2 days ago. He is currently displaying signs of early withdrawal. - CIWA protocol - Daily MVI, folate, thiamine 3. Lactic acidosis - 4.1 -> 2.6 s/p IVF; etiology 2/2 #1. - Continue IVF 4. Transaminitis - Mild, related to heavy ETOH use. 5. Hyponatremia - Hypovolemic in the setting of very poor PO intake and ongoing vomiting. - Continue NS, prioritizing volume over water balance at this stage - Monitor BMP daily Diet - Clear Liquis Code - Full Ppx - SCDs Dispo - Admit under observation status Subjective: Patient reports feeling better this morning, has not had any hematemesis or BRBPR overnight Objective: Vital Signs Temp Pulse Resp BP Pulse Ox 37.6 C 106 H 15 103/67 94 05/23/18 08:38 05/23/18 08:38 05/23/18 08:38 05/23/18 08:38 05/23/18 08:38 Laboratory Results 05/23/18 10:12 PT 13.7 SEC (12.0-15.0) 05/23/18 04:45 INR 1.03 (0.83-1.16) 05/23/18 04:45 - Physical Exam Constitutional: no apparent distress Eyes: PERRL Ears, Nose, Mouth, Throat: dry mucous membranes Cardiovascular: tachycardia Respiratory: no respiratory distress Gastrointestinal: soft, non-tender abdomen Skin: warm Musculoskeletal: normal joint ROM Neurologic: AAOx3 Psychiatric: interacting appropriately ICD10 Worksheet Patient Problems: Problems Problem Status Onset Abdominal pain Acute Alcohol withdrawal Acute GIB (gastrointestinal bleeding) Acute
[2018-05-24] MEDS: LORazepam 2 MG/ML INJ IVP PRN ×9 (01:30→20:41)
[2018-05-24] MEDS: ACETAMINOPHEN 325 MG TAB PO PRN ×2 (08:38→18:14)
[2018-05-24] MEDS: FOLIC ACID 1 MG TAB PO SCH (08:39)
[2018-05-24] MEDS: MULTIVITAMINS 1 EACH TAB PO SCH (08:40)
[2018-05-24] MEDS: PANTOPRAZOLE SODIUM 40 MG VIAL IVP SCH (08:49)
[2018-05-24] MEDS: NS 1,000 ML IV SCH ×2 (08:50→20:45)
--- NOTE | 2018-05-24 10:08 | HOSPPROG ---
Hospitalist Progress Note Assessment/Plan: 48 yo M w/ ETOH use d/o presents with GIB and withdrawal. Plan: 1. GIB - Most likely upper GI source noting predominance of melena. However, he has had some bright red blood both in vomit and stool as well. - GI consulted who suspect alcoholic gastritis or MWT, did not recommend EGD at time of admission - Hgb has downtrended to 11.4 this morning, from 14.9 on admission, will discuss with GI this morning to evaluate for potential EGD today - Will make NPO for potential EGD - Monitor CBC - Continue mIVF - PPI IV BID 2. ETOH use d/o with acute withdrawal - Patient drinks 30 beers daily and has hx of prior, serious withdrawal. His last drink was 2 days ago. He is currently displaying signs of early withdrawal. - CIKY protocol - Daily MVI, folate, thiamine - Discuss alcohol cessation 3. Lactic acidosis - 4.1 -> 2.6 s/p IVF; etiology 2/2 #1. - Continue IVF 4. Transaminitis - Mild, related to heavy ETOH use. 5. Hyponatremia - Hypovolemic in the setting of very poor PO intake and ongoing vomiting. - Continue NS, prioritizing volume over water balance at this stage - Monitor BMP daily Diet - NPO Code - Full Ppx - SCDs Dispo - Pending clinical course Subjective: Patient reports episode of melena yesterday morning, no hematemesis or melena since Objective: Vital Signs Temp Pulse Resp BP Pulse Ox 36.6 C 80 20 110/66 97 05/24/18 07:55 05/24/18 07:55 05/24/18 07:55 05/24/18 07:55 05/24/18 07:55 Laboratory Results 05/24/18 08:04 05/23/18 05/24/18 05/25/18 05:59 05:59 05:59 Intake Total 3216 Balance 3216 PT 13.7 SEC (12.0-15.0) 05/23/18 04:45 INR 1.03 (0.83-1.16) 05/23/18 04:45 - Physical Exam Constitutional: no apparent distress Eyes: PERRL Ears, Nose, Mouth, Throat: moist mucous membranes Cardiovascular: no murmur, rub, or gallop Respiratory: no respiratory distress, clear to auscultation Gastrointestinal: soft, non-tender abdomen Genitourinary: no bladder tenderness Skin: warm Musculoskeletal: no joint effusions Neurologic: AAOx3 Psychiatric: interacting appropriately ICD10 Worksheet Patient Problems: Problems Problem Status Onset Abdominal pain Acute Alcohol withdrawal Acute GIB (gastrointestinal bleeding) Acute
[2018-05-24] MEDS ORDERED: PNEUMOCOCCAL 0.5ML VACCINE VIAL IM ONE (11:37)
[2018-05-24] MEDS ORDERED: DEXMEDETOMIDINE HCL 400 MCG in NS 100 ML IV SCH (14:00)
--- NOTE | 2018-05-24 15:17 | ASMTCMCOM ---
CM Note CM Note Notes: 05/24/2018 Case Management Note Pt admitted for GIB, alcohol abuse and withdrawl. Discussed with RN, possible scope needed for changes in H&H. Currently scoring high on CIWA. Case management unable to meet with pt today. Pt was screened by [email or web address] for Medicaid. Alerted [facility] liason Mamie Giordano for post discharge case management needs. Case Management d/c poc: to be determined. Case Management to follow. Date Signed: 05/24/2018 03:16 PM Electronically Signed By:Martha Waldron RN
[2018-05-24] MEDS ORDERED: PANTOPRAZOLE SODIUM 40 MG TAB PO SCH (21:00)
[2018-05-24 22:51] VITALS: BP 115/84
--- NOTE | 2018-05-25 06:46 | PDMN ---
Medical Necessity Medical necessity: Change to inpt as of 05/24/18 @ 11:23. Pt meets inpt criteria per MD order and MCG M-180, Gastrointestinal Bleeding, Upper. 48 y/o admitted w/GI bleed, most likely upper w/ongoing bleeding, Hgb and HCT downtrended from 14.9, 39.8 on admission to 11.4, 31.7, melena and some bright red blood in vomit and stool. GI consult, NPO for potential EGD. Pt also w/ acute alcohol WD, CIWA protocol, hyponatremia (Na 127). IVF, IV PPI, follow labs. Anticipate>2MN for ongoing management of GI bleed and acute alcohol WD.
--- NOTE | 2018-05-25 11:03 | PDDCSUM ---
Discharge Summary Discharge Summary: Date of Admission: 05/23/2018 Date of Discharge: 05/24/2018 (Left AMA) Consults: GI Procedure: CT Abd Followup: PCP, GI Hospital Course Problem List: 48 yo M w/ ETOH use d/o presents with GIB and alcohol withdrawal. Plan: 1. GIB - Most likely upper GI source noting predominance of melena. However, he has had some bright red blood both in vomit and stool as well. - GI consulted who suspect alcoholic gastritis or MWT, did not recommend EGD - Hgb has downtrended to 11.4 but remained stable from 11.2 previous, discussed with GI, Dr. Feng, who recommended no EGD and to continue monitoring - PPI IV BID, plan to transition to PO PPI - Patient left AMA overnight 2. ETOH use d/o with acute withdrawal - Patient drinks 30 beers daily and has hx of prior, serious withdrawal. His last drink was 2 days ago. He is currently displaying signs of early withdrawal. - CIWA protocol, was requiring high amounts of IV Ativan - Daily MVI, folate, thiamine - Discussed alcohol cessation, was interested in discussing detox options however left AMA overnight 3. Lactic acidosis - 4.1 -> 2.6 s/p IVF; etiology 2/2 #1. - Was on mIVF 4. Transaminitis - Mild, related to heavy ETOH use. 5. Hyponatremia - Hypovolemic in the setting of very poor PO intake and ongoing vomiting. - Continue NS, prioritizing volume over water balance at this stage - Monitor BMP daily
[2018-05-26] MEDS ORDERED: THIAMINE HCL 100 MG TAB PO SCH (06:18)
== END 2018-05-24 23:15 | disposition left against medical advice (07) | DRG 369 ==
LOC: F2W 08:32 → OBSVTOIN 05-24 11:23
PROVIDERS: ADMIT Student in an Organized Health Care Education/Training Program; ATTEND Internal Medicine
DX: K22.6 Gastro-esophageal laceration-hemorrhage syndrome (principal); K29.21 Alcoholic gastritis with bleeding; F10.230 Alcohol dependence with withdrawal, uncomplicated; Z23 Encounter for immunization
CPT/HCPCS: 96374; G0008; G0009; G0378; G0480; J2060; J2405; Q9967

== ENCOUNTER 2018-05-25 03:13 | Emergency (ER) | payer SELFPAY ==
[2018-05-25] MEDS ORDERED: NS 1,000 ML IV ONE (03:15)
--- NOTE | 2018-05-25 03:16 | EDPHY ---
H & P Time Seen by Provider: 05/25/18 03:16 HPI/ROS: HPI CHIEF COMPLAINT: Alcohol withdrawal, left AMA earlier. HISTORY OF PRESENT ILLNESS: Patient is a 48-year-old male, who I recently admitted for alcoholism, alcohol withdrawal and a GI bleed. He left the hospital earlier this evening against medical advice removed both of his IVs and left. He went home he broke into his own house and decided he wanted go drink alcohol. He presents back to the emergency room after his called 911 to get police involved. The patient states he would like to go to detox. He denies any vomiting of blood or blood in his stool. Denies abdominal pain. Placed on a [facility] hold by [facility]. Past Medical History: Alcoholism with daily alcohol use, up to 30 beers per day. Past Surgical History: No recent surgery Social History: Daily alcohol use. Family History: Noncontributory ROS REVIEW OF SYSTEMS: 10 Systems were reviewed and negative with the exception of the elements mentioned in the history of present illness. Exam Constitutional nontoxic. No acute distress, triage nursing summary reviewed, vital signs reviewed, awake/alert. Eyes normal conjunctivae and sclera, EOMI, PERRLA. HENT normal inspection, atraumatic, moist mucus membranes, no epistaxis, neck supple/ no meningismus, no raccoon eyes. Respiratory clear to auscultation bilaterally, normal breath sounds, no respiratory distress, no wheezing. Cardiovascular rate normal, regular rhythm, no murmur, no edema, distal pulses normal. Gastrointestinal soft, non-tender, no rebound, no guarding, normal bowel sounds, no distension, no pulsatile mass. Genitourinary no CVA tenderness. Musculoskeletal no midline vertebral tenderness, full range of motion, no calf swelling, no tenderness of extremities, no meningismus, good pulses, neurovascularly intact. Skin pink, warm, & dry, no rash, skin atraumatic. Neurologic awake, alert and oriented x 3, AAOx3, moves all 4 extremities equally, motor intact, sensory intact, CN II-XII intact, normal cerebellar, normal vision, normal speech. Psychiatric normal mood/affect. Heme/Lymph/Immune no lymphadenopathy. Differential Diagnosis: Includes but is not limited to in a particular order alcoholism, alcohol draw, electrolyte disturbance Medical Decision Making: Plan for this patient IV establishment with blood draw , check basic blood work CBC chemistry, and if patient wants to go to detox will provide Librium and he is on a [facility] hold. Re-evaluation: 0400AM: Patient's blood work reviewed and vital signs. His heart rate is currently 96. Blood pressure 116/71. He is not tremulous. He is not altered. He is agreeable on going to the [facility]. Will provide Librium for him. H&H are stable. He has not had any vomiting or dark melenic stools. He is agreeable on going to detox. 0407: Patient resting comfortably. Heart rate not tachycardic. No tremors. Not hallucinating. No tongue fasciculations. Feels much better after IV fluids and Ativan. Will be allowed to go to the [facility]. Source: Patient, EMS - Medical/Surgical History Hx Asthma: No Hx Chronic Respiratory Disease: No Hx Diabetes: No Hx Cardiac Disease: No Hx Renal Disease: No Hx Cirrhosis: No Hx Alcoholism: Yes Hx HIV/AIDS: No Hx Splenectomy or Spleen Trauma: No Other PMH: Alcoholism, testicular cancer, withdrawl sz - Social History Smoking Status: Never smoked Constitutional: Initial Vital Signs Temperature (C) 37.5 C 05/25/18 03:15 Heart Rate 110 H 05/25/18 03:15 Respiratory Rate 16 05/25/18 03:15 Blood Pressure 123/80 H 05/25/18 03:15 O2 Sat (%) 97 05/25/18 03:15 O2 Delivery Mode Room Air Allergies/Adverse Reactions: No Known Allergies Allergy (Verified 05/23/18 04:44) Home Medications: Medication Instructions Recorded NK [No Known Home Meds] 11/29/17 Medical Decision Making - Data Points Laboratory Results: Laboratory Results 05/25/18 03:25 05/25/18 03:25 05/25/18 05/25/18 03:25 03:25 WBC 5.43 10^3/uL 10^3/uL (3.80-9.50) RBC 4.14 10^6/uL L 10^6/uL (4.40-6.38) Hgb 13.2 g/dL L g/dL (13.7-17.5) Hct 36.2 % L % (40.0-51.0) MCV 87.4 fL fL (81.5-99.8) MCH 31.9 pg pg (27.9-34.1) MCHC 36.5 g/dL g/dL (32.4-36.7) RDW 11.9 % % (11.5-15.2) Plt Count 131 10^3/uL L 10^3/uL (150-400) MPV 9.1 fL fL (8.7-11.7) Neut % (Auto) 76.7 % H % (39.3-74.2) Lymph % (Auto) 15.7 % % (15.0-45.0) [place] % (Auto) 4.6 % % (4.5-13.0) Eos % (Auto) 1.7 % % (0.6-7.6) Baso % (Auto) 0.9 % % (0.3-1.7) Nucleat RBC Rel Count 0.0 % % (0.0-0.2) Absolute Neuts (auto) 4.17 10^3/uL 10^3/uL (1.70-6.50) Absolute Lymphs (auto) 0.85 10^3/uL L 10^3/uL (1.00-3.00) Absolute Monos (auto) 0.25 10^3/uL L 10^3/uL (0.30-0.80) Absolute Eos (auto) 0.09 10^3/uL 10^3/uL (0.03-0.40) Absolute Basos (auto) 0.05 10^3/uL 10^3/uL (0.02-0.10) Absolute Nucleated RBC 0.00 10^3/uL 10^3/uL (0-0.01) Immature Gran % 0.4 % % (0.0-1.1) Immature Gran # 0.02 10^3/uL 10^3/uL (0.00-0.10) Sodium 134 mEq/L L mEq/L (135-145) Potassium 3.7 mEq/L mEq/L (3.3-5.0) Chloride 96 mEq/L L mEq/L (97-110) Carbon Dioxide 27 mEq/l mEq/l (22-31) Anion Gap 11 mEq/L mEq/L (6-14) BUN 8 mg/dL mg/dL (7-23) Creatinine 0.7 mg/dL mg/dL (0.7-1.3) Estimated GFR > 60 Glucose 107 mg/dL H mg/dL (70-100) Calcium 9.2 mg/dL mg/dL (8.5-10.4) Ethyl Alcohol < 10 mg/dL mg/dL (0-10) Medications Given: Discontinued Medications Chlordiazepoxide (Librium 25 Mg Prepack#6) 1 btl TAKEHOME EDNOW ONE Stop: 05/25/18 03:45 Last Admin: 05/25/18 04:03 Dose: 1 btl Sodium Chloride (Ns) 1,000 mls @ 0 mls/hr IV EDNOW ONE; Wide Open PRN Reason: Protocol Stop: 05/25/18 03:16 Last Admin: 05/25/18 03:20 Dose: 1,000 mls Lorazepam (Ativan Injection) 1 mg IVP EDNOW ONE Stop: 05/25/18 03:41 Last Admin: 05/25/18 03:40 Dose: 1 mg Departure - Departure Disposition: Home, Routine, Self-Care Clinical Impression: Alcohol withdrawal Qualifiers: Complication of substance-induced condition: uncomplicated Qualified Code(s): F10.230 - Alcohol dependence with withdrawal, uncomplicated Condition: Good Instructions: Chlordiazepoxide (By mouth), Alcohol Withdrawal (ED) Referrals: NONE *PRIMARY CARE P,. [Primary Care Provider] - As per Instructions
[2018-05-25] MEDS ORDERED: LORazepam 2 MG/ML INJ ONE (03:33)
[2018-05-25] MEDS ORDERED: LORazepam 2 MG/ML INJ IVP ONE (03:40)
[2018-05-25 03:41] LABS: PLATELET COUNT 131 10^3/uL (150-400)
[2018-05-25] MEDS ORDERED: CHLORDIAZEPOXIDE 25MG PREPK#6 BTL TAKEHOME ONE (03:44)
[2018-05-25 04:40] VITALS: BP 104/75
== END 2018-05-25 04:37 | disposition home or self-care (01) ==
LOC: EDBD → EDUNIT#
DX: F10.230 Alcohol dependence with withdrawal, uncomplicated (principal); E86.9 Volume depletion, unspecified
CPT/HCPCS: 96374; G0480; J2060

== ENCOUNTER 2018-07-13 14:35 | Emergency (ER) | payer SELFPAY ==
[2018-07-13] MEDS ORDERED: fentaNYL 100 MCG/2 ML INJ IVP ONE (15:13)
[2018-07-13] MEDS ORDERED: NS 1,000 ML IV ONE (15:13)
--- NOTE | 2018-07-13 15:17 | EDPHY ---
H & P Stated Complaint: RUQ pn x 3D with L ear pain/jaw pain Time Seen by Provider: 07/13/18 15:00 HPI/ROS: CHIEF COMPLAINT: Abdominal pain, ear pain, throat pain, fever HISTORY OF PRESENT ILLNESS: 48-year-old male with a significant history of alcoholism, daily alcohol drinker, history of testicular cancer treated with a orchiectomy, presents reporting several days of fever, cough, cold symptoms, pain in his left ear, swollen lymph node on the left, and abdominal pain. Patient apparently always has some right upper quadrant pain, this has worsened. Also reports dark stools. History of GI hemorrhage. Patient reports fever but did not check his temperature. He tells me has intermittent shortness of breath, cough productive of sputum, no vomiting or diarrhea, stools which are dark in color, no urinary complaints, no significant sore throat but pain in his ear. Old records demonstrated admission for upper GI bleed with probable gastritis. Patient left AMA. Did not receive an EGD. Patient's last drink was several hours ago. REVIEW OF SYSTEMS: A comprehensive 10 system review of systems was reviewed and is otherwise negative aside from elements mentioned in the history of present illness and medical decision making. PAST MEDICAL HISTORY: Alcoholism, upper GI hemorrhage, denies hepatitis or pancreatitis. History of testicular cancer. SOCIAL HISTORY: . Daily alcohol use. Nonsmoker. VITAL SIGNS Reviewed by me. GENERAL: Well-developed, well-nourished, lying quietly, answers with brief answers. Holding his right upper quadrant. HEENT: Atraumatic. Eyes: No icterus, no injection. TM: Right tympanic membrane is clear, left tympanic membrane slightly erythematous. Mouth: moist mucous membranes. Posterior erythema and enlarged left tonsil. Neck: supple with left submandibular adenopathy. LUNGS: Clear to auscultation bilaterally, no wheezes, rhonchi or rales. CARDIAC: Regular rate and rhythm, no rubs, murmurs or gallops. ABDOMEN: Soft, significant right upper quadrant tenderness with voluntary guarding. Nondistended. No surgical scars. No rebound. RECTAL: No hemorrhoids, good tone, no stool in the vault. BACK: No CVA tenderness. EXTREMITIES: No trauma. No edema. Range of motion is normal throughout. NEURO: Alert and oriented, grossly nonfocal. SKIN: Warm and dry, no rash. PSYCHIATRIC: Normal mentation, no agitation. - Personal History Current Tetanus/Diphtheria Vaccine: Yes - Medical/Surgical History Hx Asthma: No Hx Chronic Respiratory Disease: No Hx Diabetes: No Hx Cardiac Disease: No Hx Renal Disease: No Hx Cirrhosis: No Hx Alcoholism: Yes Hx HIV/AIDS: No Hx Splenectomy or Spleen Trauma: No Other PMH: Alcoholism, testicular cancer, withdrawl sz - Social History Smoking Status: Never smoked Constitutional: Initial Vital Signs Temperature (C) 36.4 C 07/13/18 14:41 Heart Rate 102 H 07/13/18 14:41 Respiratory Rate 18 07/13/18 14:41 Blood Pressure 151/102 H 07/13/18 14:41 O2 Sat (%) 95 07/13/18 14:41 O2 Delivery Mode Room Air Allergies/Adverse Reactions: No Known Allergies Allergy (Verified 07/13/18 14:41) Home Medications: Medication Instructions Recorded Amoxicillin Trihydrate [Amoxil] 500 mg PO TID 7 Days cap 07/13/18 Medical Decision Making - Diagnostics Imaging Results: CXR: Impression: No acute cardiopulmonary process. Suggestion of healed or healing fractures on the right. Dictated By: Mary Connor MD Abd CT with contrast Impression: 1. No acute findings. 2. Subacute nondisplaced anterolateral right sixth rib fracture. 3. Enlarged fatty liver. 4. Additional findings as above. Findings discussed with Iraida Rodriguez MD, 07/13/2018 at 16:38. Dictated By: Bipin Barron MD Imaging: Discussed imaging studies w/ call center support consultant Radiologist, I viewed and interpreted images myself ED Course/Re-evaluation: 48-year-old male presents to the emergency department with complaints of ear pain, symptoms suggestive of an upper respiratory infection, and the swollen lymph node. He also on exam seems to have a significant amount of right upper quadrant discomfort. Laboratory evaluation demonstrates normal white count, chemistries remarkable for hyponatremia, hypochloremia, mildly elevated AST. I reviewed the patient's records, he has had hyponatremia previously secondary to fluid overload. The stool for occult blood was negative. Patient did have a CT scan of his abdomen pelvis which demonstrates fatty liver but no acute findings. No significant ascites. Strep screen is negative. Screening labs for sepsis is negative. Patient will be placed on amoxicillin for treatment of lymphadenitis, otitis media, tonsillitis. He requests to be discharged to the [facility] for alcohol treatment. Differential Diagnosis: Differential diagnosis of the patient's symptom complex was considered including but not limited to viral upper respiratory infection, viral pharyngitis, strep pharyngitis, peritonsillar abscess, tonsillitis, epiglottitis , influenza, and mononucleosis. Differential diagnosis considered for the patient upper abdominal pain was considered included but was not limited to cholecystitis, gastritis, pancreatitis, kidney stones, urinary tract infections and other causes. - Data Points Laboratory Results: Laboratory Results 07/13/18 13:46 07/13/18 13:46 Medications Given: Discontinued Medications Chlordiazepoxide (Librium 25 Mg Prepack#6) 1 btl TAKEHOME EDNOW ONE Stop: 07/13/18 17:28 Last Admin: 07/13/18 17:28 Dose: 1 btl Fentanyl (Sublimaze) 50 mcg IVP EDNOW ONE Stop: 07/13/18 15:14 Last Admin: 07/13/18 15:30 Dose: 50 mcg Sodium Chloride (Ns) 1,000 mls @ 0 mls/hr IV ONCE ONE; Wide Open PRN Reason: Protocol Stop: 07/13/18 15:14 Last Admin: 07/13/18 15:29 Dose: 1,000 mls Departure - Departure Disposition: Home, Routine, Self-Care Clinical Impression: Lymphadenopathy Alcohol intoxication Qualifiers: Complication of substance-induced condition: uncomplicated Qualified Code(s): F10.920 - Alcohol use, unspecified with intoxication, uncomplicated Upper respiratory infection Qualifiers: URI type: unspecified viral URI Qualified Code(s): J06.9 - Acute upper respiratory infection, unspecified Otitis media Qualifiers: Otitis media type: unspecified Chronicity: acute Qualified Code(s): H66.90 - Otitis media, unspecified, unspecified ear Condition: Fair Instructions: Chlordiazepoxide/Clidinium (By mouth), Lymphadenopathy (ED), Abuse of Alcohol (ED), Alcohol Dependence (ED) Additional Instructions: You been given a prescription of amoxicillin. Please take this as directed. It should help with the infection in your lymph node. Will also help with any ear infection. Please drink plenty of fluids. Get plenty of rest. Avoid excessive alcohol intake. Use Tylenol and ibuprofen as needed for fever. I recommend that she begin taking omeprazole, this is available [id number] , it is told as a 2 week course and it will help with gastritis. Referrals: NONE *PRIMARY CARE P,. [Primary Care Provider] - As per Instructions Prescriptions: Amoxicillin Trihydrate [Amoxil] 500 mg PO TID 7 Days cap
[2018-07-13 15:30] LABS: PLATELET COUNT 164 10^3/uL (150-400)
[2018-07-13 15:39] LABS: INR 1.03 (0.83-1.16); PROTIME(PATIENT) 13.7 SEC (12.0-15.0)
[2018-07-13] MEDS ORDERED: IOPAMIDOL (ISOVUE-300) 100 ML BTL ONE (16:03)
[2018-07-13 16:53] VITALS: BP 118/72
[2018-07-13] MEDS ORDERED: CHLORDIAZEPOXIDE 25MG PREPK#6 BTL TAKEHOME ONE ×2 (17:14→17:27)
== END 2018-07-13 17:35 | disposition home or self-care (01) ==
DX: R22.0 Localized swelling, mass and lump, head (principal); F10.20 Alcohol dependence, uncomplicated; J06.9 Acute upper respiratory infection, unspecified; H66.90 Otitis media, unspecified, unspecified ear; Z85.47 Personal history of malignant neoplasm of testis
CPT/HCPCS: 96374; G0480; J3010; Q9967

== ENCOUNTER 2018-08-08 14:39 | Emergency (ER) | payer OTHER ==
[2018-08-08 14:45] VITALS: BP 131/90
--- NOTE | 2018-08-08 14:50 | EDPHY ---
H & P Stated Complaint: wants to go to [facility] ----needs Librium-has w/d seizures Time Seen by Provider: 08/08/18 14:50 - Medical/Surgical History Hx Asthma: No Hx Chronic Respiratory Disease: No Hx Diabetes: No Hx Cardiac Disease: No Hx Renal Disease: No Hx Cirrhosis: No Hx Alcoholism: Yes Hx HIV/AIDS: No Hx Splenectomy or Spleen Trauma: No Other PMH: Alcoholism, testicular cancer, withdrawl sz - Social History Smoking Status: Never smoked Constitutional: Initial Vital Signs Temperature (C) 36.5 C 08/08/18 14:43 Heart Rate 89 08/08/18 14:43 Respiratory Rate 18 08/08/18 14:43 Blood Pressure 131/90 H 08/08/18 14:43 O2 Sat (%) 97 08/08/18 14:43 O2 Delivery Mode Room Air Allergies/Adverse Reactions: No Known Allergies Allergy (Verified 07/13/18 14:41) Home Medications: Medication Instructions Recorded NK [No Known Home Meds] 08/08/18 Medical Decision Making ED Course/Re-evaluation: CHIEF COMPLAINT: No complaints HISTORY OF PRESENT ILLNESS: The patient is a 48 y/o male who presents with no complaints, states he is "alright," and wants to leave. He will not answer any further questions and is unwilling to participate in history or exam. He has walked out of the department. REVIEW OF SYSTEMS: Unobtainable, patient not cooperative with assessment. PHYSICAL EXAM: General Appearance: Alert, well hydrated, appropriate, and non-toxic appearing. Limited exam, patient did not participate in examination. Head: Atraumatic without scalp tenderness or obvious injury Neck: Supple. Respiratory: No distress. Musculoskeletal: Normal active ROM of all extremities, no visible trauma. Neurological: Alert, appropriate, and interactive. Moving all extremities, normal gait. Skin: No rashes, good turgor, no nodules on palpation. PAST MEDICAL HISTORY: Did not obtain PAST SURGICAL HISTORY: Did not obtain SOCIAL HISTORY: Did not obtain MEDICAL DECISION MAKING: This 48 y/o male told the triage nurse he needed Librium to go to the [facility]. When I attempt to interview him during history and offer Librium prescription, all he says is that he is okay and wants to leave. He has walked out of the department. Departure - Departure Disposition: Home, Routine, Self-Care Clinical Impression: Alcoholism Condition: Good Instructions: Alcohol Use Disorder (ED) Additional Instructions: Go directly to the [facility] if you wish to detox with assistance. Return to the ED with any concerns. Referrals: [facility] Detox 24 Hours [Outside] - As per Instructions Report Scribed for: Anselmo Molina Report Scribed by: Brooklyn Sousa Date of Report: 08/08/18 Time of Report: 15:05
== END 2018-08-08 15:00 | disposition left against medical advice (07) ==
DX: Z53.20 Procedure and treatment not carried out because of patient's decision for unspecified reasons (principal); F10.920 Alcohol use, unspecified with intoxication, uncomplicated

== ENCOUNTER 2018-08-09 21:00 | Emergency (ER) | payer SELFPAY ==
[2018-08-09 21:04] VITALS: BP 149/91
--- NOTE | 2018-08-09 21:23 | EDPHY ---
H & P Stated Complaint: ETOH withdrawal, last drink @2044 today Time Seen by Provider: 08/09/18 21:22 HPI/ROS: HPI: This is 48-year-old male who presents with Chief Complaint: ETOH withdrawal, last drink @2044 today Location: Body Quality: Alcohol intoxication Duration: Unknown Signs and Symptoms: no fever, no nausea, no vomiting, no hematemesis, no blood in stool, no abdominal bloating, no diarrhea, no back pain, no urinary symptoms , no testicular/groin pain, no indigestion, no chest pain, no shortness of breath Timing: Acute on chronic Severity: Moderate Context: Patient has a history of alcoholism, drinking approximately 30 beers per day, presents accompanied by his significant other with complaints of alcohol intoxication and requesting detox. His last drink was approximately 1 hr prior to arrival. He denies homicidal ideation, suicidal ideation, nausea, vomiting. He reports that he feels jittery and slightly anxious. [facility]. Came to this emergency room yesterday but walked out without receiving treatment. Modifying Factors: None Comment: ROS: A comprehensive 10 system review of systems is otherwise negative aside from elements mentioned in the history of present illness. MEDICAL/SURGICAL/SOCIAL HISTORY: Medical history: Alcoholism, testicular cancer, withdrawal sz Surgical history: Denies Social history: Never smoked. Family history noncontributory. CONSTITUTIONAL: Intoxicated, cooperative middle-aged male, awake and alert, no obvious distress HEENT: Atraumatic and normocephalic, PERRL, EOMI. Nares patent; no rhinorrhea; no nasal mucosal edema. Tympanic membranes clear. Oropharynx clear, no exudate and moist pink mucosa. Airway patent. No lymphadenopathy. No meningismus. Cardiovascular: Normal S1/S2, regular rate, regular rhythm, without murmur rub or gallop. PULMONARY/CHEST: Symmetrical and nontender. Clear to auscultation bilaterally. Good air movement. No accessory muscle usage. ABDOMEN: Soft, nondistended, nontender, no rebound, no guarding, no peritoneal signs, no masses or organomegaly. No CVAT. EXTREMITIES: 2/2 pulses, strength 5/5, no deformities, no clubbing, no cyanosis or edema. NEUROLOGICAL: no focal neuro deficits. GCS 15. SKIN: Warm and dry, no erythema. no rash. Good capillary refill. Source: Patient, Family Exam Limitations: Intoxication - Personal History Current Tetanus/Diphtheria Vaccine: Yes - Medical/Surgical History Hx Asthma: No Hx Chronic Respiratory Disease: No Hx Diabetes: No Hx Cardiac Disease: No Hx Renal Disease: No Hx Cirrhosis: No Hx Alcoholism: Yes Hx HIV/AIDS: No Hx Splenectomy or Spleen Trauma: No Other PMH: Alcoholism, testicular cancer, withdrawl sz - Social History Smoking Status: Never smoked Constitutional: Initial Vital Signs Temperature (C) 36.8 C 08/09/18 21:02 Heart Rate 96 08/09/18 21:02 Respiratory Rate 18 08/09/18 21:02 Blood Pressure 149/91 H 08/09/18 21:02 O2 Sat (%) 94 08/09/18 21:02 O2 Delivery Mode Room Air Allergies/Adverse Reactions: No Known Allergies Allergy (Verified 08/09/18 21:03) Home Medications: Medication Instructions Recorded NK [No Known Home Meds] 08/08/18 Medical Decision Making ED Course/Re-evaluation: Vital signs reviewed and stable upon arrival. CIWA equals 0 Patient is currently intoxicated. He is ambulating on his own without any ataxia. He is willing to [facility] with Librium prepack Does not meet [address] or [facility] criteria. This patient was seen under the supervision of my secondary supervising physician. I evaluated care for this patient independently. Discussed this patient with Dr. Abarca who did not see the patient. Differential Diagnosis: Differential diagnosis includes but is not limited to alcohol abuse, alcohol intoxication, alcohol withdrawal seizures, delirium tremens. - Data Points Medications Given: Discontinued Medications Chlordiazepoxide (Librium 25 Mg Prepack#6) 1 btl TAKEHOME EDNOW ONE Stop: 08/09/18 21:32 Last Admin: 08/09/18 21:47 Dose: 1 btl Departure - Departure Disposition: Home, Routine, Self-Care Clinical Impression: Alcoholic intoxication without complication, Alcoholism /alcohol abuse Condition: Good Instructions: Chlordiazepoxide/Clidinium (By mouth), Alcohol Intoxication (ED) , Abuse of Alcohol (ED) Additional Instructions: Please refrain from drinking alcohol excessively. You are medically clear to go to the [facility] for further detox. Take Librium as needed for alcohol withdrawal symptoms. Referrals: [facility] [Outside] - As per Instructions
[2018-08-09] MEDS ORDERED: CHLORDIAZEPOXIDE 25MG PREPK#6 BTL TAKEHOME ONE (21:31)
== END 2018-08-09 21:48 | disposition home or self-care (01) ==
DX: F10.920 Alcohol use, unspecified with intoxication, uncomplicated (principal)

== ENCOUNTER 2018-09-01 15:58 | Emergency (ER) | payer MEDICAID ==
--- NOTE | 2018-09-01 16:40 | EDPHY ---
HPI/HX/ROS/PE/MDM Narrative: CHIEF COMPLAINT: Transient paresthesias left arm HPI: The patient is a 48 y/o male with a history of alcohol abuse and withdrawal seizures who complains of now-resolved left arm numbness. Last night he noticed numbness and tingling in his distal left biceps and left forearm and a "weird sensation" in his left fingertips. These symptoms resolved overnight, but returned this morning for a short time. He had no associated weakness, headache, vision changes, speech difficulty, or fever at any point. He did notice mild left lateral neck pain while symptoms were present. He denies recent trauma or illness. He is anxious he could be having a heart attack or stroke due to his history of seizures. REVIEW OF SYSTEMS: A comprehensive 10 system review of systems is otherwise negative aside from elements mentioned in the history of present illness. PMH: Alcoholism, withdrawal seizures, testicular cancer SOCIAL HISTORY: Nonsmoker. Lives in [place]. Not employed. PHYSICAL EXAM: General:Patient is alert, in no acute distress. ENT:Eyes are normal to inspection. ENT inspection normal. Neck: Normal inspection. Full range of motion. Respiratory:No respiratory distress. Breath sounds normal bilaterally. Cardiovascular: Regular rate and rhythm. Strong peripheral pulses. Normal cap refill. Abdomen:The abdomen is nontender to palpation. There are no peritoneal signs. Back: Normal to inspection. No tenderness to palpation. Skin: Normal color. No rash. Warm and dry. Extremities: Normal appearance. Full range of motion. Neuro: Oriented x3. Normal motor function. Normal sensory function. No pronator drift. Normal supervisor cytology bilaterally. Normal [id number] bilaterally. Normal strength biceps/triceps bilaterally. ED Course: Anxious-appearing 48 y/o male with history of alcohol withdrawal seizures who presents after 2 episodes of transient paresthesias in portions of his left arm. He has a completely normal neuro exam on assessment here. Plan for head CT to rule out acute intracranial process, ISTAT, EKG. Labs unremarkable. The 12 lead EKG was interpreted by myself. See hard copy and/or "tracemaster" electronic copy for interpretation. Head CT: negative. Reassessed patient and discussed findings. Exam remains normal. I've found no evidence of acute stroke or other neurologic process at this time. He will be discharged home with standard care and follow up instructions. Return precautions discussed. He is comfortable with this plan. MDM: This patient presents with what sounds like two episodes of patchy numbness without motor deficits to his left arm. These symptoms have resolved prior to arriving at the ED and his motor and sensory exam is completely normal for me, ruling out CVA. He does not complain of chest pain to me at all, and his ECG and troponin are negative. Given history of alcoholism and possible occult head trauma, I ordered a CTH which is negative. Given negative workup and normal exam, I think patient is safe for discharge home and outpatient workup. I see no signs of SAH, epidrual bleed, ACS, cervical spine fracture. - Data Points Imaging Results: Imaging Impressions Head CT 09/01/18 16:38 Impression: There is no acute abnormality identified on this unenhanced CT evaluation. If there is further clinical concern regarding the patient's symptoms, MR imaging of the brain (with and without contrast) is suggested, if not otherwise contraindicated. Findings were discussed with Radhames Styles MD at 16:57, on 09/01/2018. Imaging: Discussed imaging studies w/ scallop shucker Radiologist, I viewed and interpreted images myself Laboratory Results: 09/01/18 16:25 POC Troponin I 0.00 ng/mL ng/mL (0.00-0.08) Point of Care Test Results: Chemistry 09/01/18 16:25 POC Troponin I 0.00 ng/mL ng/mL (0.00-0.08) General Time Seen by Provider: 09/01/18 16:30 Initial Vital Signs: Initial Vital Signs Temperature (C) 36.5 C 09/01/18 16:01 Heart Rate 103 H 09/01/18 16:01 Respiratory Rate 18 09/01/18 16:01 Blood Pressure 142/101 H 09/01/18 16:01 O2 Sat (%) 97 09/01/18 16:01 O2 Delivery Mode Room Air Allergies/Adverse Reactions: No Known Allergies Allergy (Verified 09/01/18 16:01) Home Medications: Medication Instructions Recorded NK [No Known Home Meds] 08/08/18 Departure - Departure Disposition: Home, Routine, Self-Care Clinical Impression: Arm paresthesia, left Instructions: Paresthesia (ED) Additional Instructions: Follow up with your primary care provider next week for reevaluation. Return for worsening of condition. Referrals: [facility],. [Clinic] - As per Instructions Report Scribed for: Radhames Styles Report Scribed by: Brooklyn Sousa Date of Report: 09/01/18 Time of Report: 16:40 Physician Review and Approval Statement: Portions of this note were transcribed by an ED scribe. I personally performed the history, physical exam, and medical decision making; and confirm the accuracy of the information in the transcribed note.
[2018-09-01 17:58] VITALS: BP 136/89
--- NOTE | 2018-09-01 20:22 | CPEKG ---
Test Reason : OPEN Blood Pressure : / mmHG Vent. Rate : 097 BPM Atrial Rate : 097 BPM P-R Int : 164 ms QRS Dur : 100 ms QT Int : 357 ms P-R-T Axes : 073 041 051 degrees QTc Int : 454 ms Sinus rhythm Confirmed by Tanvir Prieto ([id number]) on 09/01/2018 8:21:52 PM Referred By: PHYSICIAN ED Confirmed By:Tanvir Prieto
== END 2018-09-01 17:57 | disposition home or self-care (01) ==
DX: R20.2 Paresthesia of skin (principal)
CPT/HCPCS: 84484-ER